=== PATIENT | male | born 1955 | race Hispanic/Latino ===

== ENCOUNTER 2018-02-10 14:12 | Emergency (ER) | payer BC ==
--- NOTE | 2018-02-10 14:23 | C.PDOC ---
History Of Present Illness 62 year old male presents to the ER with a complaint of sudden onset cramping abdominal pain. He thought he was going to have diarrhea but did not, then he he began having trouble breathing with wheezing, diaphoresis, and palpitations. Patient still has abdominal pain which is mostly left sided. Denies chest pain, nausea, or vomiting. Time Seen by Provider: 02/10/18 14:18 Chief Complaint (Nursing): Shortness Of Breath History Per: Patient History/Exam Limitations: no limitations Current Symptoms Are (Timing): Still Present Location Of Pain/Discomfort: Other (Left sided) Radiation Of Pain To:: None Quality Of Discomfort: Cramping Associated Symptoms: Other (Diaphoretic, palpitations, wheezing). denies: Fever , Chills, Nausea, Vomiting Exacerbating Factors: None Alleviating Factors: None Recent travel outside of the [place]: No Past Medical History Reviewed: Historical Data, Nursing Documentation, Vital Signs Vital Signs: Last Vital Signs Temp 97.9 F 02/10/18 17:22 Pulse 84 02/10/18 17:22 Resp 20 02/10/18 17:22 BP 156/97 H 02/10/18 17:22 Pulse Ox 94 L 02/10/18 17:25 Family History: States: Unknown Family Hx Review Of Systems Constitutional: Positive for: Sweats. Negative for: Fever, Chills Cardiovascular: Positive for: Palpitations. Negative for: Chest Pain Respiratory: Positive for: Shortness of Breath, Wheezing. Negative for: Cough Gastrointestinal: Positive for: Abdominal Pain. Negative for: Nausea, Vomiting Neurological: Negative for: Weakness, Numbness Physical Exam - Physical Exam Appears: Non-toxic, Other (Anxious) Skin: Normal Color, Warm, Dry Head: Atraumatic, Normacephalic Eye(s): bilateral: Normal Inspection Oral Mucosa: Moist Neck: Normal, Supple Chest: Symmetrical, No Tenderness Cardiovascular: Rhythm Regular Respiratory: No Rales, No Rhonchi, Wheezing (Diffuse), Other (Pulse ox 92-94) Gastrointestinal/Abdominal: Bowel Sounds (Hyperactive), Soft, Tenderness (LLQ), No Guarding, No Rebound Back: No CVA Tenderness Neurological/Psych: Oriented x3, Normal Speech ED Course And Treatment - Laboratory Results Result Diagrams: 02/10/18 14:34 02/10/18 14:34 Lab Interpretation: No Acute Changes (BUN 21, Cr 0.7) ECG: Interpreted By Me ECG Rhythm: Sinus Rhythm, ST/T Changes (nonspecific) ECG Interpretation: No Acute Changes O2 Sat by Pulse Oximetry: 94 (increased to 100% after albuterol) Pulse Ox Interpretation: Abnormal - Radiology CXR: Viewed By Me, Read By Radiologist CXR Interpretation: Yes: No Acute Disease - CT Scan/US CT abd/pel Other Rad Studies (CT/US): Read By Radiologist, Radiology Report Reviewed CT/US Interpretation: PROCEDURE: CT Abdomen and Pelvis with oral and IV contrast. HISTORY: abd pain. COMPARISON: None available. TECHNIQUE: Contiguous axial images of the abdomen and pelvis. Oral and IV contrast was administered. Coronal and Sagittal reformats generated and reviewed. Contrast dose: 100 cc Omnipaque 350. Radiation dose: Total exam DLP = 1083.64 mGy-cm. This CT exam was performed using one or more of the following dose reduction techniques: Automated exposure control, adjustment of the mA and/or kV according to patient size, and/or use of iterative reconstruction technique. FINDINGS: LOWER THORAX: No visible consolidation, pleural effusion, or pneumothorax. LIVER: Hypoattenuation of the liver compatible with hepatic steatosis. GALLBLADDER AND BILE DUCTS: Unremarkable. PANCREAS: Unremarkable. SPLEEN: Unremarkable. ADRENALS: Unremarkable. KIDNEYS AND URETERS: The kidneys enhance symmetrically. No hydronephrosis or obstructing renal calculus. BLADDER: The urinary bladder appears unremarkable. REPRODUCTIVE: The prostate gland measures approximately 4.3 x 4.8 cm. APPENDIX : The appendix is not identified. No secondary signs of acute appendicitis. BOWEL: The stomach is nondistended. The bowel loops appear within normal limits of caliber without evidence of intestinal obstruction. Wall thickening of the transverse and proximal left colon. No significant adjacent inflammatory changes evident. Correlate clinically for possibility of colitis. PERITONEUM: No significant free fluid. No definite free air. LYMPH NODES: No bulky lymphadenopathy identified. VASCULATURE: Mild atherosclerotic calcification of the aorta. No aortic aneurysm. BONES: No acute osseous abnormality is detected. OTHER FINDINGS: None. IMPRESSION: Wall thickening of the transverse and proximal left colon. No significant adjacent inflammatory changes evident. Correlate clinically for possibility of colitis. Hepatic steatosis. Enlarged prostate gland. Recommend correlation with PSA Progress Note: CT abd/pel, EKG, blood work, CXR, and urinalysis ordered. Albuterol nebulizer administered. 3:45 Patient did have an episode of explosive diarrhea in ED and now feels much better. No further respiratory distress. Reevaluation Time: 17:27 Reassessment Condition: Improved (Feels much better, slightly fatigued) Disposition Counseled Patient/Family Regarding: Studies Performed, Diagnosis, Need For Followup - Disposition Disposition: HOME/ ROUTINE Disposition Time: 17:27 Condition: IMPROVED Instructions: Diarrhea in Adolescents and Adults Forms: [facility] [employer] [facility] (Yakut) - Clinical Impression Clinical Impression: Colitis - Scribe Statement The provider has reviewed the documentation as recorded by the Scribnikolay Storey All medical record entries made by the Renita were at my direction and personally dictated by me. I have reviewed the chart and agree that the record accurately reflects my personal performance of the history, physical exam, medical decision making, and the department course for this patient. I have also personally directed, reviewed, and agree with the discharge instructions and disposition.
[2018-02-10] MEDS ORDERED: Iohexol 240 (50 ml) PO STA (14:29)
[2018-02-10] MEDS ORDERED: Albuterol-Ipratrop 3 mg / 0.5 (3 ml) UD IH STA (14:30)
[2018-02-10 14:43] LABS: BASO % 0.5 % (0.0-2.0); EOS # 0.3 K/uL (0.0-0.7); EOS % 3.6 % (0.0-4.0); HEMOGLOBIN 15.5 g/dL (12.0-18.0); LYMPH # 3.8 K/uL (1.0-4.3); LYMPH % 41.8 % (20.0-40.0); MEAN CELL VOLUME 89.3 fL (80.0-94.0); MEAN CORPUSCULAR HEMOGLOBIN 30.9 pg (27.0-31.0); MEAN CORPUSCULAR HGB CONC 34.6 g/dL (33.0-37.0); MEAN PLATELET VOLUME 8.3 fL (7.2-11.7); MONO # 0.9 K/uL (0.0-0.8); MONO % 9.8 % (0.0-10.0); NEUT # 4.1 K/uL (1.8-7.0); NEUT % 44.3 % (50.0-75.0); RED CELL DISTRIBUTION WIDTH 13.2 % (11.5-14.5); WHITE BLOOD COUNT 9.2 K/uL (4.8-10.8)
[2018-02-10] MEDS ORDERED: Iohexol 240 (50 ml) ONE (14:51)
[2018-02-10 14:53] LABS: INR 1.1; PROTHROMBIN TIME 11.5 SECONDS (9.7-12.2)
[2018-02-10 14:54] LABS: ALB/GLOB RATIO 1.6 (1.0-2.1); ALBUMIN 4.6 g/dL (3.5-5.0); ALT/SGPT 43 U/L (21-72); AST/SGOT 33 U/L (17-59); BLOOD UREA NITROGEN 21 mg/dL (9-20); CALCIUM 10.2 mg/dl (8.6-10.4); GFR NON-AFRICAN AMERICAN > 60; LIPASE 146 U/L (23-300)
[2018-02-10] MEDS ORDERED: Sodium Chloride 0.9% 1,000 ML IV ONE (15:01)
[2018-02-10 15:25] LABS: URINE BILIRUBIN NEGATIVE (NEGATIVE); URINE BLOOD NEGATIVE (NEGATIVE); URINE CLARITY Clear (Clear); URINE COLOR Amber (YELLOW); URINE GLUCOSE (UA) NORMAL (Normal); URINE LEUKOCYTE ESTERASE NEG Leu/uL (Negative); URINE PROTEIN NEGATIVE (NEGATIVE)
--- NOTE | 2018-02-10 15:37 | RAD ---
Date of service: 02/10/2018 PROCEDURE: CHEST RADIOGRAPH, 1 VIEW HISTORY: abd pain COMPARISON: None available. FINDINGS: LUNGS: No acute pulmonary disease bilaterally. PLEURA: No pneumothorax or pleural fluid seen. CARDIOVASCULAR: Normal. OSSEOUS STRUCTURES: No significant abnormalities. VISUALIZED UPPER ABDOMEN: Normal. OTHER FINDINGS: None. IMPRESSION: No acute cardiopulmonary disease appreciated.
[2018-02-10] MEDS ORDERED: Iohexol 350mg/ml 100 ML ONE (16:18)
--- NOTE | 2018-02-10 17:18 | CT ---
PROCEDURE: CT Abdomen and Pelvis with oral and IV contrast. HISTORY: abd pain COMPARISON: None available. TECHNIQUE: Contiguous axial images of the abdomen and pelvis. Oral and IV contrast was administered. Coronal and Sagittal reformats generated and reviewed. Contrast dose: 100 cc Omnipaque 350 Radiation dose: Total exam DLP = 1083.64 mGy-cm. This CT exam was performed using one or more of the following dose reduction techniques: Automated exposure control, adjustment of the mA and/or kV according to patient size, and/or use of iterative reconstruction technique. FINDINGS: LOWER THORAX: No visible consolidation, pleural effusion, or pneumothorax. LIVER: Hypoattenuation of the liver compatible with hepatic steatosis. GALLBLADDER AND BILE DUCTS: Unremarkable. PANCREAS: Unremarkable. SPLEEN: Unremarkable. ADRENALS: Unremarkable. KIDNEYS AND URETERS: The kidneys enhance symmetrically. No hydronephrosis or obstructing renal calculus. BLADDER: The urinary bladder appears unremarkable. REPRODUCTIVE: The prostate gland measures approximately 4.3 x 4.8 cm. APPENDIX: The appendix is not identified. No secondary signs of acute appendicitis. BOWEL: The stomach is nondistended. The bowel loops appear within normal limits of caliber without evidence of intestinal obstruction. Wall thickening of the transverse and proximal left colon. No significant adjacent inflammatory changes evident. Correlate clinically for possibility of colitis. PERITONEUM: No significant free fluid. No definite free air. LYMPH NODES: No bulky lymphadenopathy identified. VASCULATURE: Mild atherosclerotic calcification of the aorta. No aortic aneurysm. BONES: No acute osseous abnormality is detected. OTHER FINDINGS: None. IMPRESSION: Wall thickening of the transverse and proximal left colon. No significant adjacent inflammatory changes evident. Correlate clinically for possibility of colitis. Hepatic steatosis. Enlarged prostate gland. Recommend correlation with PSA
[2018-02-10 17:23] VITALS: BP 156/97; PULSE 84; RESP 20; TEMP 97.9
[2018-02-10 17:25] VITALS: O2SAT 94
--- NOTE | 2018-02-11 21:45 | CARD ---
APPROVED REPORT Date of service: 02/10/2018 EKG Measurement Heart [id number] <Conclusion> Normal sinus rhythm Nonspecific ST abnormality Abnormal ECG
== END 2018-02-10 17:39 | disposition home or self-care (01) ==
LOC: C.ER 14:12
DX: K52.9 Noninfective gastroenteritis and colitis, unspecified (principal)
CPT/HCPCS: 71045; 74177; 80053; 81001; 83605; 83690; 84484; 85025; 85610; 85730; 93005; 96360; 99285; J7030; Q9966; Q9967